=== PATIENT | female | born 1975 | race Caucasian/White ===

== ENCOUNTER 2016-10-14 19:18 | Emergency (ER) | payer OTHER ==
[2016-10-14 19:53] VITALS: BP 102/60
--- NOTE | 2016-10-14 20:24 | UC ---
Throat Pain/Nasal Kyle HPI - HPI Summary HPI Summary: complaint of right ear pain that vstarted approx this morning [pain has increased throughout the day nasal congestion and cough denies fever and chills, headaches took some allergy medication, sudafed, tylenol with some relief - History of Current Complaint Chief Complaint: UCEar Stated Complaint: EAR PAIN Time Seen by Provider: 10/14/16 20:16 Hx Obtained From: Patient Hx Last Menstrual Period: 09/26/16 - Allergies/Home Medications Allergies/Adverse Reactions: Allergies Allergy/AdvReac Type Severity Reaction Status Date / Time No Known Allergies Allergy Verified 04/30/12 07:47 PMH/Surg Hx/FS Hx/Imm Hx Previously Healthy: Yes Endocrine History Of: Denies: Diabetes, Thyroid Disease Cardiovascular History Of: Denies: Cardiac Disorders, Hypertension, Pacemaker/ICD Respiratory History Of: Denies: COPD, Asthma GI/ History Of: Denies: Ulcer - Surgical History Surgical History: Yes Surgery Procedure, Year, and Place: LAZY EYE SURGERY A CHILD - Family History Known Family History: Negative: Cardiac Disease, Hypertension, Diabetes - Social History Occupation: Employed Full-time Lives: With Family Alcohol Use: Occasionally Substance Use Type: None Smoking Status (MU): Former Smoker Review of Systems Constitutional: Negative Skin: Negative Eyes: Negative ENT: Ear Ache, Nasal Discharge Respiratory: Cough Cardiovascular: Negative Gastrointestinal: Negative Genitourinary: Negative Motor: Negative Neurovascular: Negative Musculoskeletal: Negative Neurological: Negative Psychological: Negative All Other Systems Reviewed And Are Negative: Yes Physical Exam Triage Information Reviewed: Yes Appearance: No Pain Distress, Well-Nourished Vital Signs: Initial Vital Signs Temp 99.8 F 10/14/16 19:47 Pulse 73 10/14/16 19:47 Resp 18 10/14/16 19:47 BP 102/60 10/14/16 19:47 Pulse Ox 96 10/14/16 19:47 Vital Signs Reviewed: Yes Eyes: Positive: Conjunctiva Clear ENT: Positive: Pharyngeal erythema, Nasal congestion, Nasal drainage, TM bulging. Negative: TM red Neck: Positive: No Lymphadenopathy Respiratory: Positive: Lungs clear, Normal breath sounds, No respiratory distress Cardiovascular: Positive: RRR, No Murmur, Pulses Normal Abdomen Description: Positive: Nontender, Soft Bowel Sounds: Positive: Present Musculoskeletal: Positive: No Edema Neurological: Positive: Alert Psychological Exam: Normal Skin Exam: Normal Throat Pain/Nasal Course/Dx - Course Course Of Treatment: exam completed. offered flonase but pt refuses - Differential Dx/Diagnosis Differential Diagnosis/HQI/PQRI: Otitis Media, URI Provider Diagnoses: URI, eustachion tube dysfunction Discharge - Discharge Plan Condition: Stable Disposition: HOME Patient Education Materials: Upper Respiratory Infection (ED), Eustachian Tube Dysfunction (GEN) Referrals: Adarsh Ramirez MD [Primary Care Provider] - Additional Instructions: continue sudafed Increase fluids and rest Take acetaminophen or ibuprofen for fever or pain Please review your discharge instructions. If your symptoms do not improve please call your primary care provider or return to urgent care
== END 2016-10-14 20:44 | disposition home or self-care (01) ==
LOC: UCEAST 19:18
DX: J06.9 Acute upper respiratory infection, unspecified (principal); H69.90 Unspecified Eustachian tube disorder, unspecified ear; Z87.891 Personal history of nicotine dependence
CPT/HCPCS: 99211; G0463

== ENCOUNTER 2017-04-09 07:42 | Day surgery (SDC) | payer OTHER ==
[~2017-04-09 07:42] MED LIST: Buffered Lidocaine 0.9% SYRIN* 5 ML/SYR SYRINGE INTRADERM ONE; Buffered Lidocaine 0.9% SYRIN* 5 ML/SYR SYRINGE ONE; ceFOXitin 2 GM IVPREMIX* 2 GM/50 ML BAG ONE
[2017-04-09] MEDS ORDERED: Midazolam* 1 MG/ML 5 ML VIAL (5 MG) ONE (08:03)
[2017-04-09] MEDS ORDERED: fentaNYL* 50 MCG/ML 2 ML VIAL (100 MCG VIAL) ONE (08:03)
[2017-04-09 08:38] LABS: Hematocrit 34 % (35-47); Hemoglobin 11.6 g/dl (12.0-16.0); Mean Corpuscular HGB Conc 34 g/dl (31-36); Mean Corpuscular Hemoglobin 29 pg (27-31); Mean Corpuscular Volume 85 fL (80-97); Mean Platelet Volume 11 um3 (7.4-10.4); Red Blood Count 4.06 10^6/ul (4.0-5.4); Red Cell Distribution Width 14 % (10.5-15); White Blood Count 6.6 10^3/ul (3.5-10.8)
[2017-04-09] MEDS ORDERED: Propofol* 10 MG/ML 20 ML BTL IV PUSH ONE (09:19)
[2017-04-09] MEDS ORDERED: Ketorolac INJ* 30 MG/ML 1 ML VIAL ONE (09:19)
[2017-04-09] MEDS ORDERED: Ondansetron INJ* 2 MG/ML VIAL IV PRN (09:33)
[2017-04-09] MEDS ORDERED: Silver Nitrate/Potassium Nitr* 1 EA STICK ONE (10:08)
[2017-04-09 10:48] VITALS: BP 109/54
--- NOTE | 2017-04-10 03:40 | OP ---
DATE OF OPERATION: 04/09/17 - [facility] DATE OF : 77 SURGEON: Dr. Dana Tobias. ANESTHESIOLOGIST: Dr. Maria. ANESTHESIA: Sedation. PRE-OP DIAGNOSIS: Endometrial mass. POST-OP DIAGNOSIS: Endometrial mass, probable endometrial polyp. OPERATIVE PROCEDURE: Dilation, curettage, hysteroscopic resection of endometrial mass. ESTIMATED BLOOD LOSS: Minimal. URINE OUT: Less than 50 cc clear yellow urine. FLUIDS: 800 cc of crystalloid, deficit 382 cc. FINDINGS: Revealed an endometrial mass consistent with polyp with vascular supply near the right tubal ostia occupying three-quarters of the uterine cavity. After resection of mass, normal tubal ostia seen both on right and left. COMPLICATIONS: None apparent. DISPOSITION: Stable to recovery room. DESCRIPTION OF PROCEDURE: The patient was placed in dorsal lithotomy position. Legs were placed in Anthony Jonathan stirrups. Perineum and vagina were prepped and draped in a sterile standard fashion. The patient was identified using universal protocol using correct procedure, position, and patient. A sterile self-cath was placed for drainage of 50 cc of clear yellow urine. Self- cath was removed. Sterile speculum was inserted. Cervix was visualized, grasped on the anterior lip with single tooth tenaculum and dilated with Hegar dilators, TIN #8. The hysteroscope was then inserted. The left tubal ostia was seen clearly. The right tubal ostia was not able to be seen secondary to large endometrial mass that occupied three-quarters of the uterine cavity. The MyoSure LITE was then used for complete resection of the endometrial mass revealing the normal-appearing right tubal ostia and normal uterine cavity. Hysteroscope was removed. Sharp curettage was performed of the uterine cavity and the hysteroscope was then reinserted confirming excellent sampling of the endometrial cavity. Single tooth tenaculum was removed. Pressure was applied to the tenaculum site for hemostasis and a nitrate stick x1 was applied with hemostasis of the tenaculum site. The patient was then returned to dorsal lithotomy position and taken to recovery room in stable condition. All sponge, instrument, blade counts were correct throughout the case. The patient tolerated the procedure well and went to recovery room in stable condition. [id number]/[facility] #: [id number] [facility]
== END 2017-04-09 10:58 | disposition home or self-care (01) ==
LOC: OR 07:42
PROVIDERS: ATTEND Obstetrics & Gynecology
DX: N93.9 Abnormal uterine and vaginal bleeding, unspecified (principal); N84.0 Polyp of corpus uteri; Z87.891 Personal history of nicotine dependence
CPT/HCPCS: 36415; 81025; 85025; 86850; 86900; 86901; 88305; A9270-GY; J0694; J1885; J2250; J2704; J3010